=== PATIENT | male | born 1995 | race Two or more races ===

== ENCOUNTER 2022-06-15 10:21 | Outpatient (CLI) | payer OTHER | END 2022-06-15 23:50 | disposition home or self-care (01) | LOC: LAB 10:21 | PROVIDERS: ATTEND Specialist | DX: Z01.812 Encounter for preprocedural laboratory examination (principal); Z20.822 Contact with and (suspected) exposure to COVID-19 | CPT/HCPCS: U0003; C9803 ==

== ENCOUNTER 2022-06-22 06:07 | Day surgery (SDC) | payer OTHER ==
[2022-06-22] MEDS ORDERED: ANESTHESIA TRAY IN PYXIS 1 EA TRAY MC ONE ×2 (06:34→11:47)
[2022-06-22] MEDS ORDERED: BUPIVACAINE 0.25% 75 MG/30 ML VIAL ONE (06:37)
[2022-06-22] MEDS ORDERED: methylPREDNISolone ACETATE 80 MG/ML VIAL ONE (06:37)
[2022-06-22] MEDS ORDERED: LIDOCAINE 1% INJ 50 ML MDV IJ ONE (06:37)
[2022-06-22] MEDS ORDERED: EPINEPHRINE (1:1000) 1 MG/ML AMPUL ONE (06:39)
[2022-06-22] MEDS ORDERED: FENTANYL PF 250MCG/5ML AMPUL ONE (06:55)
[2022-06-22] MEDS ORDERED: HYDROMORPHONE INJ 2 MG/ML DISP.SYRIN ONE (06:55)
[2022-06-22] MEDS ORDERED: ROCURONIUM BROMIDE 50 MG/5 ML ONE (06:56)
[2022-06-22] MEDS ORDERED: MIDAZOLAM HCL 2 MG/2ML VIAL ONE (06:56)
[2022-06-22] MEDS ORDERED: BUPIVACAINE 0.5 % PF 150 MG/30 ML VIAL ONE (07:07)
== END 2022-06-22 11:30 | disposition home or self-care (01) ==
LOC: DS 06:07
PROVIDERS: ATTEND Specialist
DX: S43.492A Other sprain of left shoulder joint, initial encounter (principal); X58.XXXA Exposure to other specified factors, initial encounter; Y93.89 Activity, other specified; Y92.89 Other specified places as the place of occurrence of the external cause; Y99.8 Other external cause status
CPT/HCPCS: 29806; 29828; J3490; J0171; J1170; C1713 ×2; J2250; A4217; J3010; J0690; J1040; J2405; J2704; J2765; J7030